=== PATIENT | female | born 1980 | race Caucasian/White ===

== ENCOUNTER 2016-07-11 19:57 | Outpatient (CLI) | payer MEDICAID ==
[~2016-07-11 19:57] MED LIST: ACET-709 PO; AMOX-291 PO; AMOX1TAB61 PO; CIPR500T87 PO; CITA40TA5 PO; HYDR-3240 PO; IBUP800T PO; NITR100C56; OXYC-302 PO; OXYC30TA PO
[2016-07-11] MEDS ORDERED: OXYcodone/APAP 5/325MG TABLET ONE (20:34)
[2016-07-11] MEDS ORDERED: OXYcodone/APAP 5/325MG TABLET PO ONE (21:00)
[2016-07-11] MEDS ORDERED: PLEASE ENTER HEIGHT AND WEIGHT MC SCH (21:00)
== END 2016-07-11 21:20 | disposition home or self-care (01) ==
LOC: LDOP 19:57
PROVIDERS: ATTEND Obstetrics & Gynecology Maternal & Fetal Medicine
DX: O09.513 Supervision of elderly primigravida, third trimester (principal); O26.893 Other specified pregnancy related conditions, third trimester; M54.9 Dorsalgia, unspecified; Z3A.33 33 weeks gestation of pregnancy
CPT/HCPCS: 59025; 99211; G0463

== ENCOUNTER 2017-02-22 23:17 | Emergency (ER) | payer MEDICAID ==
[~2017-02-22] VITALS: Ht 165.1 cm; Wt 89.0 kg
[~2017-02-22 23:17] MED LIST changes: +IBUP-1223 PO; -IBUP800T PO
[2017-02-22 23:18] VITALS: BP 135/86
[2017-02-22] MEDS ORDERED: LIDOCAINE 1%, 10ML ONE (23:42)
[2017-02-23] MEDS ORDERED: LIDOCAINE 1%, 20ML SQ ONE
== END 2017-02-23 00:32 | disposition home or self-care (01) ==
LOC: ED 23:29
DX: L02.414 Cutaneous abscess of left upper limb (principal); F11.10 Opioid abuse, uncomplicated; I10 Essential (primary) hypertension; F41.9 Anxiety disorder, unspecified; F17.210 Nicotine dependence, cigarettes, uncomplicated
CPT/HCPCS: 10060; 99283